=== PATIENT | male | born 1985 ===

== ENCOUNTER 2016-10-17 22:07 | Emergency (ER) | payer SELFPAY ==
[2016-10-17 22:07] VITALS: BMI 29.0
[2016-10-17 22:15] VITALS: BP 145/65; PULSE 99; RESP 16; TEMP 98.2; O2SAT 99
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
[2016-10-17 23:57] LABS: BASO # 0.1 K/uL (0.0-0.2); BASO % 1.3 % (0.0-2.0); EOS # 0.4 K/uL (0.0-0.7); HEMATOCRIT 44.9 % (35.0-51.0); LYMPH # 2.7 K/uL (1.0-4.3); LYMPH % 25.2 % (20.0-40.0); MEAN CELL VOLUME 88.2 fl (80.0-94.0); MEAN CORPUSCULAR HEMOGLOBIN 30.7 pg (27.0-31.0); MEAN CORPUSCULAR HGB CONC 34.8 g/dL (33.0-37.0); MEAN PLATELET VOLUME 7.4 fl (7.2-11.7); MONO # 0.9 K/uL (0.0-0.8); MONO % 8.6 % (0.0-10.0); NEUT # 6.6 K/uL (1.8-7.0); NEUT % 60.9 % (50.0-75.0); RED CELL DISTRIBUTION WIDTH 13.3 % (11.5-14.5); WHITE BLOOD COUNT 10.9 K/uL (4.8-10.8)
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
[2016-10-18] MEDS ORDERED: Oxycodone/Acetaminophen 5/325 mg Tab ONE (00:52)
[2016-10-18] MEDS ORDERED: Oxycodone/Acetaminophen 5/325 mg Tab PO ONE (00:58)
== END 2016-10-18 01:55 | disposition home or self-care (01) ==
LOC: H.ER 22:07
DX: T30.0 Burn of unspecified body region, unspecified degree (principal)
CPT/HCPCS: 85025; 87040; 96374; 96375; 99284; J1885